=== PATIENT | male | born 1970 | race Two or more races ===

== ENCOUNTER 2020-11-07 01:49 | Emergency (ER) | payer SELFPAY ==
[~2020-11-07] VITALS: Ht 182.9 cm; Wt 86.2 kg
--- NOTE | 2020-11-07 02:05 | NUR ---
BIBRA C/O HONG, N/V, FEELING DIZZYPATIENT IS A/OX 3, RR EVEN AND UNLABORED, NO SIGNS OF SOB NOTED. PATIENT CONNECTED TO [employer]MENT [employer] AND POX.
[2020-11-07] MEDS ORDERED: IV NS 0.9% 1,000 ML BAG IV ONE (02:30)
[2020-11-07] MEDS ORDERED: KETOROLAC TROMETHAMINE INJ 30 MG/ML VIAL IV ONE (02:30)
[2020-11-07] MEDS ORDERED: CLONIDINE HCL 0.1 MG TABLET PO ONE (02:30)
[2020-11-07] MEDS ORDERED: diphenhydrAMINE HCL 50 MG/ML VIAL IV ONE (02:30)
[2020-11-07] MEDS ORDERED: METOCLOPRAMIDE HCL 10 MG/2 ML VIAL IV ONE (02:30)
--- NOTE | 2020-11-07 03:30 | NUR ---
Patient discharged to home in stable condition. Written and verbal after care instructions given. Patient verbalizes understanding of instruction.
[2020-11-07 03:38] VITALS: BP 119/62
== END 2020-11-07 03:39 | disposition home or self-care (01) ==
LOC: ER 01:51
DX: G43.909 Migraine, unspecified, not intractable, without status migrainosus (principal)